=== PATIENT | male | born 1995 | race Caucasian/White ===

== ENCOUNTER 2016-11-28 19:12 | Emergency (ER) | payer OTHER ==
[~2016-11-28] VITALS: Ht 185.4 cm; Wt 113.4 kg
[~2016-11-28 19:12] MED LIST: AMOXICILLIN500 M2 PO; AMOXIL500 MG PO; FLUOXETINE10 MG PO; MOTRIN600 MG PO; MOTRIN800 MG PO; NKHM PO; NORCO 325 MG-51 TAB PO; PEN-VK500 MG PO; TRIMOX500 MG PO; ZOFRAN ODT4 MG SL
[2017-01-29] MEDS ORDERED: LISINOPRIL10 M1 PO (13:29)
[2017-01-29] MEDS ORDERED: OMEPRAZOLE40 MG PO (13:29)
[2017-01-29] MEDS ORDERED: FLONASE ALLERG9.9 ML NAS (14:02)
[2017-01-29] MEDS ORDERED: SALINE NOSE SPR45 ML NS (14:02)
== END 2016-11-28 19:43 | disposition home or self-care (01) ==
LOC: ED 19:12
DX: S60.512A Abrasion of left hand, initial encounter (principal); X58.XXXA Exposure to other specified factors, initial encounter; Y93.89 Activity, other specified; Y92.89 Other specified places as the place of occurrence of the external cause; Y99.9 Unspecified external cause status

== ENCOUNTER 2017-03-11 13:12 | Emergency (ER) | payer OTHER ==
[~2017-03-11] VITALS: Ht 180.3 cm; Wt 131.5 kg
[~2017-03-11 13:12] MED LIST changes: +FLONASE ALLERG9.9 ML NAS; +LISINOPRIL10 M1 PO; +OMEPRAZOLE40 MG PO; +SALINE NOSE SPR45 ML NS
[2017-03-11] MEDS ORDERED: AUGMENTIN 875-875 MG PO (14:03)
== END 2017-03-11 14:00 | disposition home or self-care (01) ==
LOC: ED 13:12
DX: H66.001 Acute suppurative otitis media without spontaneous rupture of ear drum, right ear (principal); J02.9 Acute pharyngitis, unspecified; Z79.899 Other long term (current) drug therapy

== ENCOUNTER 2017-03-18 23:09 | Emergency (ER) | payer OTHER ==
[~2017-03-18] VITALS: Ht 180.3 cm; Wt 131.5 kg
[~2017-03-18 23:09] MED LIST changes: +AUGMENTIN 875-875 MG PO
[2017-03-19 00:03] LABS: BASO # 0.1 10*3/uL (0.0-0.1); BASO % 0.8 % (0.0-1.0); EOS # 0.2 10*3/uL (0.0-0.4); HEMATOCRIT 43.2 % (42.0-52.0); HEMOGLOBIN 15.5 g/dl (14.0-18.0); LYMPH # 3.9 10*3/uL (1.3-4.4); LYMPH % 49.2 % (27.0-41.0); MEAN CELL VOLUME 87.4 fl (80.0-94.0); MEAN CORPUSCULAR HGB 31.4 pg (27.0-31.0); MEAN CORPUSCULAR HGB CONC 35.9 g/dl (33.0-37.0); MEAN PLATELET VOLUME 11.3 fl (9.6-12.3); MONO # 0.7 10*3/uL (0.1-1.0); NEUT % 37.7 % (47.0-73.0); PLATELET COUNT AUTOMATED 376 10*3/uL (130-400); RED BLOOD COUNT 4.94 10*6/uL (4.50-5.90); RED CELL DISTRI WIDTH 11.9 % (0-14.5); WHITE BLOOD COUNT 7.9 10*3/uL (4.8-10.8)
[2017-03-19 00:14] LABS: BUN 12 mg/dl (7-24); CARBON DIOXIDE 26 mmol/L (21-32); CHLORIDE 105 mmol/L (98-107); EST GLOM FILT AFRICAN AMERICAN > 60 ml/min; GLUCOSE 111 mg/dL (65-99); POTASSIUM 3.4 mmol/L (3.5-5.1); SODIUM 144 mmol/L (136-145)
[2017-03-19] MEDS ORDERED: LOMOTIL 0.025 M1 TA1 PO (00:37)
[2017-03-19] MEDS ORDERED: ZOFRAN ODT4 MG SL (00:37)
== END 2017-03-19 01:22 | disposition home or self-care (01) ==
LOC: ED 23:09
PROVIDERS: Emergency Medicine Emergency Medical Services
DX: K52.9 Noninfective gastroenteritis and colitis, unspecified (principal)

== ENCOUNTER 2017-04-24 18:12 | Emergency (ER) | payer OTHER ==
[~2017-04-24] VITALS: Ht 180.3 cm; Wt 136.1 kg
[~2017-04-24 18:12] MED LIST changes: +LOMOTIL 0.025 M1 TA1 PO
[2017-04-24] MEDS ORDERED: ZYRTEC10 MG PO (19:44)
[2017-04-24] MEDS ORDERED: FLONASE ALLERG9.9 ML NS (19:44)
== END 2017-04-24 19:05 | disposition home or self-care (01) ==
LOC: ED 18:12
DX: J06.9 Acute upper respiratory infection, unspecified (principal)

== ENCOUNTER 2017-04-29 02:22 | Emergency (ER) | payer OTHER ==
[~2017-04-29] VITALS: Ht 180.3 cm; Wt 136.1 kg
[~2017-04-29 02:22] MED LIST changes: +FLONASE ALLERG9.9 ML NS; +ZYRTEC10 MG PO
[2017-04-29] MEDS ORDERED: LISINOPRIL10 M1 PO (02:36)
[2017-04-29] MEDS ORDERED: BLEPH-10 15 ML15 ML OPH (02:45)
== END 2017-04-29 03:08 | disposition home or self-care (01) ==
LOC: ED 02:22
DX: H10.31 Unspecified acute conjunctivitis, right eye (principal); Z79.899 Other long term (current) drug therapy

== ENCOUNTER 2019-06-07 22:09 | Emergency (ER) | payer SELFPAY ==
[~2019-06-07] VITALS: Ht 182.8 cm; Wt 142.9 kg
--- NOTE | ~2019-06-07 | EKG ---
[place], [place] ELECTROCARDIOGRAM REPORT NAME: MAURICIO PAGAN UNIT #: [id number] ROOM: DOCTOR: EPIPHANY DRAFT REPORT BIRTHDATE: [birth year] [facility] Test Date: 2019-06-07 Test Time: 22:38:04 Pat Name: MAURICIO PAGAN Department: ER Room: Gender: M Optics Engineer: : 1995 Requested By: ELSY GUERRA Order Number: [id number] Reading MD: Tri Rose MD Measurements Intervals [place] Rate: 96 P: 60 IN: 161 QRS: 53 QRSD: 93 T: 6 QT: 318 QTc: 402 Interpretive Statements Sinus rhythm Normal pattern Electronically Signed On 06-09-2019 9:07:55 PDT by Tri Rose MD CM:EKGRPT:ELECTROCARDIOGRAM REPORT [id number] ELSY CARVALHO DRAFT REPORT ELSY GUERRA DO
[~2019-06-07 22:09] MED LIST changes: +BLEPH-10 15 ML15 ML OPH
[2019-06-07 23:11] LABS: BASO # 0.1 10*3/uL (0.0-0.1); BASO % 0.8 % (0.0-1.0); EOS # 0.2 10*3/uL (0.0-0.4); EOS % 1.9 % (1.0-4.0); HEMATOCRIT 49.2 % (42.0-52.0); HEMOGLOBIN 17.1 g/dl (14.0-18.0); LYMPH # 3.5 10*3/uL (1.3-4.4); LYMPH % 33.7 % (27.0-41.0); MEAN CELL VOLUME 89.6 fl (80.0-94.0); MEAN CORPUSCULAR HGB 31.1 pg (27.0-31.0); MEAN CORPUSCULAR HGB CONC 34.8 g/dl (33.0-37.0); MEAN PLATELET VOLUME 11.5 fl (9.6-12.3); MONO % 9.3 % (3.0-9.0); NEUT # 5.7 10*3/uL (2.3-7.9); NEUT % 54.1 % (47.0-73.0); PLATELET COUNT AUTOMATED 361 10*3/uL (130-400); RED BLOOD COUNT 5.49 10*6/uL (4.50-5.90); RED CELL DISTRI WIDTH 12.2 % (0-14.5); WHITE BLOOD COUNT 10.5 10*3/uL (4.8-10.8)
[2019-06-07 23:23] LABS: ACT PARTIAL THROMBO TIME 27.8 SECONDS (20.0-32.1)
[2019-06-07 23:27] LABS: ALBUMIN 3.7 gm/dl (3.1-4.5); ALKALINE PHOSPHATASE 77 U/L (45-117); BUN 13 mg/dl (7-24); CHLORIDE 108 mmol/L (98-107); LIPASE 108 U/L (73-393); POTASSIUM 3.5 mmol/L (3.5-5.1); SGOT/AST 25 IU/L (3-35); SGPT/ALT 58 U/L (12-78); SODIUM 141 mmol/L (136-145); TOTAL PROTEIN 8.1 gm/dL (6.4-8.2)
[2019-06-07 23:34] LABS: TROPONIN I < 0.015 ng/ml (<0.045)
[2019-06-27] MEDS ORDERED: PRINIVIL10 MG PO (18:43)
== END 2019-06-08 00:20 | disposition home or self-care (01) ==
LOC: ED 22:09
PROVIDERS: Student in an Organized Health Care Education/Training Program
DX: R11.0 Nausea (principal); R61 Generalized hyperhidrosis; I10 Essential (primary) hypertension; R79.1 Abnormal coagulation profile

== ENCOUNTER → 2019-06-29 | Outpatient (CLI) | payer SELFPAY ==
[~2019-06-29] MED LIST changes: +PRINIVIL10 MG PO
== END | disposition home or self-care (01) ==
LOC: RESCLI 13:00
DX: E66.01 Morbid (severe) obesity due to excess calories (principal); I10 Essential (primary) hypertension; Z88.8 Allergy status to other drugs, medicaments and biological substances

== ENCOUNTER → 2019-06-30 | Outpatient (CLI) | payer SELFPAY ==
[2019-06-30 12:26] LABS: CHOLESTEROL 147 mg/dL (<200); HDL CHOLESTEROL 32 mg/dl (40-60); LDL CHOLESTEROL 80 mg/dL (9-159); TRIGLYCERIDES 173 mg/dl (<150); VLDL CHOLESTEROL 35 mg/dL (6-40)
== END | disposition home or self-care (01) ==
LOC: LAB 11:05
PROVIDERS: Internal Medicine
DX: E66.01 Morbid (severe) obesity due to excess calories (principal)

== ENCOUNTER 2019-08-14 22:18 | Emergency (ER) | payer SELFPAY ==
[~2019-08-14] VITALS: Ht 185.4 cm; Wt 136.1 kg
[2019-08-14 23:11] LABS: BASO # 0.1 10*3/uL (0.0-0.1); BASO % 0.5 % (0.0-1.0); EOS # 0.2 10*3/uL (0.0-0.4); EOS % 1.1 % (1.0-4.0); HEMATOCRIT 46.2 % (42.0-52.0); LYMPH # 2.9 10*3/uL (1.3-4.4); LYMPH % 19.9 % (27.0-41.0); MEAN CELL VOLUME 90.2 fl (80.0-94.0); MEAN CORPUSCULAR HGB 31.3 pg (27.0-31.0); MEAN CORPUSCULAR HGB CONC 34.6 g/dl (33.0-37.0); MEAN PLATELET VOLUME 11.2 fl (9.6-12.3); MONO # 1.4 10*3/uL (0.1-1.0); MONO % 9.5 % (3.0-9.0); NEUT % 68.7 % (47.0-73.0); PLATELET COUNT AUTOMATED 356 10*3/uL (130-400); RED BLOOD COUNT 5.12 10*6/uL (4.50-5.90); RED CELL DISTRI WIDTH 12.2 % (0-14.5); WHITE BLOOD COUNT 14.6 10*3/uL (4.8-10.8)
[2019-08-14 23:22] LABS: BUN 13 mg/dl (7-24); CHLORIDE 103 mmol/L (98-107); CREATININE 0.93 mg/dL (0.70-1.30); POTASSIUM 3.7 mmol/L (3.5-5.1); SODIUM 137 mmol/L (136-145)
[2019-08-15] MEDS ORDERED: KEFLEX500 M1 PO (00:48)
== END 2019-08-15 01:10 | disposition home or self-care (01) ==
LOC: ED 22:18
PROVIDERS: Emergency Medicine Emergency Medical Services
DX: J02.9 Acute pharyngitis, unspecified (principal); R11.10 Vomiting, unspecified; I10 Essential (primary) hypertension; Z79.899 Other long term (current) drug therapy

== ENCOUNTER 2019-08-29 19:37 | Emergency (ER) | payer SELFPAY ==
[~2019-08-29] VITALS: Ht 185.4 cm; Wt 136.1 kg
[~2019-08-29 19:37] MED LIST changes: +KEFLEX500 M1 PO
[2019-08-29 20:13] LABS: BASO # 0.1 10*3/uL (0.0-0.1); BASO % 0.6 % (0.0-1.0); EOS # 0.2 10*3/uL (0.0-0.4); EOS % 1.8 % (1.0-4.0); HEMATOCRIT 47.5 % (42.0-52.0); HEMOGLOBIN 16.7 g/dl (14.0-18.0); LYMPH # 2.2 10*3/uL (1.3-4.4); LYMPH % 18.7 % (27.0-41.0); MEAN CELL VOLUME 89.3 fl (80.0-94.0); MEAN CORPUSCULAR HGB 31.4 pg (27.0-31.0); MEAN CORPUSCULAR HGB CONC 35.2 g/dl (33.0-37.0); MEAN PLATELET VOLUME 11.7 fl (9.6-12.3); MONO # 1.3 10*3/uL (0.1-1.0); MONO % 10.9 % (3.0-9.0); NEUT # 7.8 10*3/uL (2.3-7.9); NEUT % 67.8 % (47.0-73.0); PLATELET COUNT AUTOMATED 351 10*3/uL (130-400); RED BLOOD COUNT 5.32 10*6/uL (4.50-5.90); RED CELL DISTRI WIDTH 12.5 % (0-14.5); WHITE BLOOD COUNT 11.6 10*3/uL (4.8-10.8)
[2019-08-29 20:59] LABS: ALBUMIN 3.2 gm/dl (3.1-4.5); ALKALINE PHOSPHATASE 67 U/L (45-117); BUN 15 mg/dl (7-24); CHLORIDE 102 mmol/L (98-107); CREATININE 0.97 mg/dL (0.70-1.30); POTASSIUM 3.8 mmol/L (3.5-5.1); SGOT/AST 15 IU/L (3-35); SGPT/ALT 38 U/L (12-78); SODIUM 137 mmol/L (136-145); TOTAL PROTEIN 7.5 gm/dL (6.4-8.2)
[2019-08-29] MEDS ORDERED: CEPHALEXIN500 M1 PO (22:12)
== END 2019-08-29 22:30 | disposition home or self-care (01) ==
LOC: ED 19:37
PROVIDERS: Physician Assistant
DX: B34.9 Viral infection, unspecified (principal); Z88.6 Allergy status to analgesic agent; Z79.899 Other long term (current) drug therapy

== ENCOUNTER 2019-10-09 22:00 | Emergency (ER) | payer SELFPAY ==
[~2019-10-09] VITALS: Ht 182.8 cm; Wt 142.9 kg
--- NOTE | ~2019-10-09 | EKG ---
[place], [place] ELECTROCARDIOGRAM REPORT NAME: MAURICIO PAGAN UNIT #: [id number] ROOM: DOCTOR: EPIPHANY DRAFT REPORT BIRTHDATE: [birth year] [facility] Test Date: 2019-10-09 Test Time: 22:42:32 Pat Name: MAURICIO PAGAN Department: Room: Gender: M Pharmacist: : 1995 Requested By: LUCY HERNANDEZ Order Number: [id number] Reading MD: Naren Lema MD Measurements Intervals [place] Rate: 96 P: 57 NH: 163 QRS: 59 QRSD: 90 T: 1 QT: 313 QTc: 396 Interpretive Statements Sinus rhythm Compared to ECG 06/07/2019 22:38:04 No significant changes Electronically Signed On 10-11-2019 8:48:57 PST by Naren Lema MD CM:EKGRPT:ELECTROCARDIOGRAM REPORT [id number] LUCY HERNANDEZ EPIPHANY DRAFT REPORT LUCY HERNANDEZ
[~2019-10-09 22:00] MED LIST changes: +CEPHALEXIN500 M1 PO
[2019-10-09 23:00] LABS: ALBUMIN 3.5 gm/dl (3.1-4.5); ALKALINE PHOSPHATASE 76 U/L (45-117); BUN 14 mg/dl (7-24); CHLORIDE 105 mmol/L (98-107); POTASSIUM 3.3 mmol/L (3.5-5.1); SGOT/AST 27 IU/L (3-35); SGPT/ALT 58 U/L (12-78); SODIUM 140 mmol/L (136-145); TOTAL PROTEIN 7.8 gm/dL (6.4-8.2)
[2019-10-09 23:02] LABS: BASO # 0.1 10*3/uL (0.0-0.1); BASO % 0.7 % (0.0-1.0); EOS # 0.1 10*3/uL (0.0-0.4); EOS % 1.1 % (1.0-4.0); HEMATOCRIT 46.9 % (42.0-52.0); HEMOGLOBIN 16.2 g/dl (14.0-18.0); LYMPH % 26.3 % (27.0-41.0); MEAN CELL VOLUME 89.5 fl (80.0-94.0); MEAN CORPUSCULAR HGB 30.9 pg (27.0-31.0); MEAN CORPUSCULAR HGB CONC 34.5 g/dl (33.0-37.0); MEAN PLATELET VOLUME 11.3 fl (9.6-12.3); MONO # 0.9 10*3/uL (0.1-1.0); MONO % 7.6 % (3.0-9.0); NEUT # 7.3 10*3/uL (2.3-7.9); NEUT % 63.7 % (47.0-73.0); PLATELET COUNT AUTOMATED 373 10*3/uL (130-400); RED BLOOD COUNT 5.24 10*6/uL (4.50-5.90); RED CELL DISTRI WIDTH 12.5 % (0-14.5); WHITE BLOOD COUNT 11.4 10*3/uL (4.8-10.8)
[2019-10-09 23:03] LABS: TROPONIN I < 0.015 ng/ml (<0.045)
[2019-10-09] MEDS ORDERED: LISINOPRIL10 M1 PO (23:08)
== END 2019-10-10 00:11 | disposition home or self-care (01) ==
LOC: ED 22:00
PROVIDERS: Nurse Practitioner Family
DX: I10 Essential (primary) hypertension (principal); Z91.14 Patient's other noncompliance with medication regimen; Z88.6 Allergy status to analgesic agent

== ENCOUNTER 2020-03-29 21:25 | Emergency (ER) | payer SELFPAY ==
[~2020-03-29] VITALS: Ht 182.8 cm; Wt 156.5 kg
== END 2020-03-29 22:15 | disposition home or self-care (01) ==
LOC: ED 21:25
DX: A08.4 Viral intestinal infection, unspecified (principal); I10 Essential (primary) hypertension; Z88.8 Allergy status to other drugs, medicaments and biological substances; Z79.899 Other long term (current) drug therapy

== ENCOUNTER 2020-05-20 22:32 | Emergency (ER) | payer SELFPAY ==
[~2020-05-20] VITALS: Ht 182.8 cm; Wt 140.6 kg
[2020-05-21 00:03] LABS: BASO # 0.1 10*3/uL (0.0-0.1); BASO % 0.7 % (0.0-1.0); EOS # 0.3 10*3/uL (0.0-0.4); EOS % 3.9 % (1.0-4.0); HEMATOCRIT 45.4 % (42.0-52.0); LYMPH # 3.1 10*3/uL (1.3-4.4); LYMPH % 37.3 % (27.0-41.0); MEAN CELL VOLUME 87.3 fl (80.0-94.0); MEAN CORPUSCULAR HGB 30.8 pg (27.0-31.0); MEAN CORPUSCULAR HGB CONC 35.2 g/dl (33.0-37.0); MEAN PLATELET VOLUME 11.4 fl (9.6-12.3); MONO # 0.8 10*3/uL (0.1-1.0); MONO % 9.2 % (3.0-9.0); NEUT # 4.1 10*3/uL (2.3-7.9); NEUT % 48.7 % (47.0-73.0); PLATELET COUNT AUTOMATED 352 10*3/uL (130-400); RED CELL DISTRI WIDTH 12.3 % (0-14.5); WHITE BLOOD COUNT 8.4 10*3/uL (4.8-10.8)
[2020-05-21 00:19] LABS: ALBUMIN 3.4 gm/dl (3.1-4.5); ALKALINE PHOSPHATASE 73 U/L (45-117); BUN 13 mg/dl (7-24); CHLORIDE 108 mmol/L (98-107); CREATININE 0.87 mg/dL (0.70-1.30); POTASSIUM 3.9 mmol/L (3.5-5.1); SGOT/AST 26 IU/L (3-35); SGPT/ALT 57 U/L (12-78); SODIUM 141 mmol/L (136-145); TOTAL PROTEIN 7.4 gm/dL (6.4-8.2)
[2020-05-21] MEDS ORDERED: LISINOPRIL10 M1 PO (00:30)
== END 2020-05-21 00:36 | disposition home or self-care (01) ==
LOC: ED 22:32
PROVIDERS: Nurse Practitioner Family
DX: I10 Essential (primary) hypertension (principal); Z91.14 Patient's other noncompliance with medication regimen; Z88.8 Allergy status to other drugs, medicaments and biological substances; Z79.899 Other long term (current) drug therapy

== ENCOUNTER 2020-06-14 03:07 | Emergency (ER) | payer SELFPAY ==
[~2020-06-14] VITALS: Ht 187.9 cm; Wt 128.8 kg
[2020-06-14 04:09] LABS: BASO # 0.1 10*3/uL (0.0-0.1); BASO % 1.1 % (0.0-1.0); EOS # 0.5 10*3/uL (0.0-0.4); EOS % 6.3 % (1.0-4.0); HEMATOCRIT 45.3 % (42.0-52.0); LYMPH # 3.1 10*3/uL (1.3-4.4); LYMPH % 36.1 % (27.0-41.0); MEAN CELL VOLUME 87.8 fl (80.0-94.0); MEAN CORPUSCULAR HGB 30.2 pg (27.0-31.0); MEAN CORPUSCULAR HGB CONC 34.4 g/dl (33.0-37.0); MEAN PLATELET VOLUME 10.9 fl (9.6-12.3); MONO # 0.7 10*3/uL (0.1-1.0); MONO % 7.7 % (3.0-9.0); NEUT # 4.2 10*3/uL (2.3-7.9); NEUT % 48.7 % (47.0-73.0); PLATELET COUNT AUTOMATED 372 10*3/uL (130-400); RED BLOOD COUNT 5.16 10*6/uL (4.50-5.90); RED CELL DISTRI WIDTH 12.3 % (0-14.5); WHITE BLOOD COUNT 8.5 10*3/uL (4.8-10.8)
[2020-06-14 04:25] LABS: ACETAMINOPHEN (TYLENOL) < 5.0 ug/ml (10-30); ALBUMIN 3.3 gm/dl (3.1-4.5); ALKALINE PHOSPHATASE 65 U/L (45-117); BUN 15 mg/dl (7-24); CHLORIDE 109 mmol/L (98-107); CREATININE 1.01 mg/dL (0.70-1.30); POTASSIUM 3.7 mmol/L (3.5-5.1); SGOT/AST 36 IU/L (3-35); SGPT/ALT 85 U/L (12-78); SODIUM 140 mmol/L (136-145); TOTAL PROTEIN 7.6 gm/dL (6.4-8.2)
[2020-06-14 04:36] LABS: ETHYL ALCOHOL < 3.0 mg/dl (<3)
[2020-06-14 05:53] LABS: BILIRUBIN NEGATIVE (NEGATIVE); BLOOD NEGATIVE (NEGATIVE); CLARITY SL CLOUDY (CLEAR); COLOR YELLOW (YELLOW); GLUCOSE NEGATIVE (NEGATIVE); KETONE NEGATIVE (NEGATIVE); LEUKO ESTERASE NEGATIVE (NEGATIVE); NITRITE NEGATIVE (NEGATIVE); UROBILINOGEN 0.2 E.U./dl (0.2-1.0)
[2020-06-14 05:58] LABS: WBC 0-2 wbc/hpf (0-5)
[2020-06-14 05:59] LABS: URINE AMPHETAMINES < 1000 (1000ng/ml); URINE BARBITURATES < 200 (200ng/ml); URINE BENZODIAZEPINES < 200 (200ng/ml); URINE CANNABINOIDS (THC) < 50 (50ng/ml); URINE COCAINE < 300 (300ng/ml); URINE METHADONE < 300 (300ng/ml); URINE OPIATES < 300 (300ng/ml)
[2020-06-14 06:00] LABS: URINE PHENCYCLIDINE < 25 (25ng/ml)
== END 2020-06-14 09:41 ==
LOC: ED 03:07
PROVIDERS: Emergency Medicine
DX: F43.21 Adjustment disorder with depressed mood (principal); I10 Essential (primary) hypertension; Z88.6 Allergy status to analgesic agent

== ENCOUNTER 2021-08-07 17:17 | Emergency (ER) | payer OTHER ==
[~2021-08-07] VITALS: Ht 180.3 cm; Wt 142.9 kg
== END 2021-08-08 01:25 | disposition left against medical advice (07) ==
LOC: ED 17:17
DX: R05 Cough (principal); J02.9 Acute pharyngitis, unspecified; Z53.21 Procedure and treatment not carried out due to patient leaving prior to being seen by health care provider

== ENCOUNTER 2023-10-16 14:11 | Emergency (ER) | payer SELFPAY ==
[~2023-10-16] VITALS: Ht 175.2 cm; Wt 145.1 kg
== END 2023-10-16 16:42 | disposition left against medical advice (07) ==
LOC: ED 14:11
DX: S61.214A Laceration without foreign body of right ring finger without damage to nail, initial encounter (principal); Z88.8 Allergy status to other drugs, medicaments and biological substances; Z53.21 Procedure and treatment not carried out due to patient leaving prior to being seen by health care provider; W26.8XXA Contact with other sharp object(s), not elsewhere classified, initial encounter; Y93.89 Activity, other specified; Y92.89 Other specified places as the place of occurrence of the external cause; Y99.0 Civilian activity done for income or pay

== ENCOUNTER 2024-07-11 21:49 | Emergency (ER) | payer SELFPAY ==
[~2024-07-11] VITALS: Ht 177.8 cm; Wt 142.9 kg
[2024-07-11] MEDS ORDERED: CIPROFLOX-DEXA7.5 ML OT (22:30)
== END 2024-07-11 22:32 | disposition home or self-care (01) ==
LOC: ED 21:49
DX: H60.92 Unspecified otitis externa, left ear (principal); I10 Essential (primary) hypertension; Z88.8 Allergy status to other drugs, medicaments and biological substances; Z98.890 Other specified postprocedural states

== ENCOUNTER 2025-02-01 03:18 | Emergency (ER) | payer SELFPAY ==
[~2025-02-01] VITALS: Ht 180.3 cm; Wt 136.1 kg
[~2025-02-01 03:18] MED LIST changes: +CIPROFLOX-DEXA7.5 ML OT
[2025-02-01] MEDS ORDERED: Ondansetron Hydrochloride 4 MG TAB SL ONE (03:35)
[2025-02-01] MEDS ORDERED: NAPROXEN 250 MG TAB PO ONE (03:35)
[2025-02-01] MEDS ORDERED: Amoxicillin/Clavulanate Pota 875 MG TAB PO ONE (03:35)
[2025-02-01] MEDS ORDERED: AMOX-CLAV 875-1 EACH PO (03:44)
== END 2025-02-01 03:47 | disposition home or self-care (01) ==
LOC: ED 03:18
DX: H66.91 Otitis media, unspecified, right ear (principal); I10 Essential (primary) hypertension; Z88.8 Allergy status to other drugs, medicaments and biological substances; Z98.890 Other specified postprocedural states